=== PATIENT | female | born 1955 | race Caucasian/White ===

== ENCOUNTER 2018-10-08 17:39 | Emergency (ER) | payer OTHER ==
[~2018-10-08] VITALS: Ht 152.4 cm; Wt 90.9 kg
[~2018-10-08 17:39] MED LIST: ASPI-556 PO; BENA5TAB6 PO; GLIP5 PO; LEVO75 PO; METF-446 PO; OXYC-158 PO; SIMV-260 PO
[2018-10-08] MEDS ORDERED: AMOX250C4 PO (17:45)
[2018-10-08] MEDS ORDERED: BENZ-51 PO (17:45)
[2018-10-08] MEDS ORDERED: ALBU8.5H8 IH (17:48)
[2018-10-08 19:21] LABS: BASOPHILS % (AUTO) 0.7 % (0.0-2.0); EOSINOPHILS % (AUTO) 3.8 % (1.0-6.0); HEMATOCRIT 43.2 % (36-46); HEMOGLOBIN 14.3 g/dL (12.0-16.0); LYMPHOCYTES # (AUTO) 2.4 K/uL (1.0-4.8); LYMPHOCYTES % (AUTO) 38.2 % (22.0-44.0); MEAN CORPUSCULAR HEMOGLOBIN 29.7 pg (26.0-34.0); MEAN CORPUSCULAR HGB CONC 33.1 G/dL (31.0-37.0); MEAN CORPUSCULAR VOLUME 90 fL (80-100); MONOCYTES # (AUTO) 0.5 K/uL (0.1-1.0); MONOCYTES % (AUTO) 7.3 % (2.0-9.0); NEUTROPHILS # (AUTO) 3.2 K/uL (1.8-7.7); PLATELET COUNT (AUTO) 325 K/uL (150-450); RED BLOOD CELL COUNT(AUTO) 4.81 MIL/uL (4.00-5.20)
[2018-10-08 19:31] LABS: CALCIUM, TOTAL 9.5 mg/dL (8.8-10.5); CREATININE 1.04 mg/dL (0.60-1.30)
[2018-10-08 19:37] LABS: ALBUMIN 3.3 g/dL (3.4-5.0); BILIRUBIN,TOTAL 0.3 mg/dL (0.1-1.0); TOTAL PROTEIN, SERUM 7.1 g/dL (6.4-8.2)
[2018-10-08] MEDS ORDERED: IPRATROPIUM BROMIDE 0.5 MG/2.5 ML NEB SOLUTION NEB ONE (19:45)
[2018-10-08] MEDS ORDERED: ALBUTEROL SULFATE 2.5 MG/0.5 ML NEB SOLUTION NEB ONE (19:45)
[2018-10-08 20:18] LABS: APPEARANCE,URINE CLEAR (CLEAR); BILIRUBIN,URINE NEGATIVE (NEGATIVE); GLUCOSE, URINE (UA) >=1000 mg/dL (NEGATIVE); KETONES,URINE NEGATIVE (NEGATIVE); LEUKOCYTE ESTERASE ,URINE NEGATIVE (NEGATIVE); NITRATE,URINE NEGATIVE (NEGATIVE); OCCULT BLOOD,URINE NEGATIVE (NEGATIVE); PROTEIN,URINE NEGATIVE (NEGATIVE); UROBILINOGEN,URINE 0.2 mg/dL (<=1.0)
[2018-10-08 20:30] LABS: BACTERIA,URINE None Seen /HPF (None Seen); RBC,URINE None Seen /HPF (0-2); WBC,URINE None Seen /HPF (0-5)
[2018-10-08 20:31] LABS: SQUAMOUS EPITHELIAL CELL,UR Few /LPF (None Seen)
[2018-10-08] MEDS ORDERED: SODIUM CHLORIDE 0.9% 100 ML ONE (20:32)
[2018-10-08] MEDS ORDERED: IOVERSOL 320 MG/ML 100 ML VIAL ONE (20:32)
[2018-10-08 22:26] VITALS: BP 150/84
[2018-10-09 10:48] LABS: GLUCOSE,POINT OF CARE 210 MG/DL (70-110)
[2018-10-09 10:51] LABS: GLUCOSE,POINT OF CARE 377 MG/DL (70-110)
== END 2018-10-08 22:31 | disposition home or self-care (01) ==
LOC: EMS 17:39
DX: J06.9 Acute upper respiratory infection, unspecified (principal); E11.9 Type 2 diabetes mellitus without complications; I10 Essential (primary) hypertension; E03.9 Hypothyroidism, unspecified; F17.210 Nicotine dependence, cigarettes, uncomplicated; Z79.82 Long term (current) use of aspirin; Z79.84 Long term (current) use of oral hypoglycemic drugs
CPT/HCPCS: 36415; 71045; 71260; 80053; 81001; 82962; 83880; 84484; 85025; 85379; 87040; 93005; 94640; 99285; J7050; Q9967

== ENCOUNTER 2022-07-15 09:58 | Emergency (ER) | payer OTHER ==
[~2022-07-15] VITALS: Ht 152.4 cm; Wt 86.0 kg
[~2022-07-15 09:58] MED LIST changes: +ALBU8.5H8 IH; +AMOX250C4 PO; +BENA5TAB40 PO; -BENA5TAB6 PO; +BENZ-70 PO; -GLIP5 PO; +GLIP5TAB12 PO
[2022-07-15] MEDS ORDERED: BACLOFEN 10 MG TABLET PO ONE (12:15)
[2022-07-15] MEDS ORDERED: KETOROLAC TROMETHAMINE 30 MG/ML VIAL IM ONE (12:15)
[2022-07-15] MEDS ORDERED: LIDOCAINE 5% TRANSDERMAL PATCH TD ONE (12:15)
[2022-07-15] MEDS ORDERED: LIDO700A15 TP (15:31)
[2022-07-15] MEDS ORDERED: BACL10TA PO (15:33)
[2022-07-15] MEDS ORDERED: IBUP-2070 PO (15:34)
[2022-07-15 16:05] VITALS: BP 110/60
[2022-07-15] MEDS ORDERED: OXYC-618 PO (16:11)
[2022-07-15] MEDS ORDERED: DULA3PEN SQ (16:11)
[2022-07-15] MEDS ORDERED: CYCL10TA16 PO (16:11)
[2022-07-15] MEDS ORDERED: ATOR20TA65 PO (16:11)
[2022-07-15] MEDS ORDERED: ASPI-1444 PO (16:11)
[2022-07-15] MEDS ORDERED: BENA10TA76 PO (16:11)
[2022-07-15] MEDS ORDERED: EMPA25TA3 PO (16:11)
[2022-07-15] MEDS ORDERED: INSU200I4 SQ (16:11)
[2022-07-15] MEDS ORDERED: DEXT15DR29 OU (16:11)
[2022-07-15] MEDS ORDERED: NAPR-1025 PO (16:11)
[2022-07-15] MEDS ORDERED: LEVO125T11 PO (16:11)
== END 2022-07-15 16:06 | disposition home or self-care (01) ==
LOC: EMS 10:18
DX: M25.512 Pain in left shoulder (principal); E11.9 Type 2 diabetes mellitus without complications; I10 Essential (primary) hypertension; F17.210 Nicotine dependence, cigarettes, uncomplicated; Z87.39 Personal history of other diseases of the musculoskeletal system and connective tissue; Z98.890 Other specified postprocedural states
CPT/HCPCS: 99284; 72040; 73030; 96372; J1885